=== PATIENT | male | born 1985 | race African-American/Black ===

== ENCOUNTER 2021-05-17 20:23 | Emergency (ER) | payer MEDICAID ==
[~2021-05-17] VITALS: Ht 180.3 cm; Wt 72.6 kg
[2021-05-17 20:25] VITALS: BP 134/74
--- NOTE | 2021-05-17 20:25 | NUR ---
to bed ambulatory
--- NOTE | 2021-05-17 20:26 | NUR ---
Place patient on potline monitor and pulse ox.
--- NOTE | 2021-05-17 20:32 | NUR ---
Patient BIB by family from home. C/O Asthma attack x today. Patient reported, had difficulty breathing, last IH used ~ last night, Patient discharged from [facility], Patient did not refill medications (Dilantin and Abilinicole ). Patient reported experience of hallucination today.
--- NOTE | 2021-05-17 20:32 | NUR ---
Note undone in EDM - 05/17/21 at 2051 by [email or web address] Patient BIB by family from home. C/O Asthma attack x today. Patient reported, had difficulty breathing, last IH used ~ last night, Patient discharged from [facility] today, Patient did not refill medications. Patient reported experience of hallucination today.
--- NOTE | 2021-05-17 20:48 | NUR ---
Dr. Rees at bedside to exam patient.
[2021-05-17] MEDS: PHENYTOIN 100 MG CAPER PO ONE (21:03)
[2021-05-17] MEDS: ARIPiprazole 10 MG TAB PO ONE (21:03)
[2021-05-17 21:16] VITALS: BP 134/74
--- NOTE | 2021-05-17 21:16 | NUR ---
Patient discharged with v/s stable. Written and verbal after care instructions given and explained. Patient verbalized understanding. Ambulatory with steady gait. All questions addressed prior to discharge. Advised to follow up with PMD.
== END 2021-05-17 21:16 | disposition home or self-care (01) ==
LOC: MED 20:23
DX: F41.9 Anxiety disorder, unspecified (principal); J45.909 Unspecified asthma, uncomplicated; F20.9 Schizophrenia, unspecified
CPT/HCPCS: 99283